=== PATIENT | male | born 1980 | race African-American/Black ===

== ENCOUNTER 2016-12-16 19:55 | Emergency (ER) | payer MEDICARE, MEDICAID ==
[~2016-12-16] VITALS: Ht 185.4 cm; Wt 93.4 kg
[2016-12-16 21:01] LABS: Basophils # (auto) 0 uL; Basophils % (auto) 0.1 % (0.0-2.0); Eosinophils # (auto) 0.2 uL; Eosinophils % (auto) 2.2 % (0.0-7.0); Hematocrit 44.8 % (41.0-53.0); Hemoglobin 15.2 g/dL (13.5-17.5); Lymphocytes # (auto) 1.2 uL; Lymphocytes % (auto) 11.1 % (10.0-50.0); Mean Corpuscular Hemoglobin 31.3 pg (28.0-32.0); Mean Corpuscular Volume 92.2 fL (80.0-100.0); Mean Platelet Volume 7.2 fL (7.4-10.4); Monocytes # (auto) 0.6 uL; Monocytes % (auto) 5.7 % (0.0-12.0); Neutrophils # (auto) 8.4 uL; Neutrophils % (auto) 80.9 % (37.0-80.0); Platelet Count (auto) 306 10^3/uL (140-450); Red Cell Distribution Width 13.8 % (11.6-16.0); White Blood Cell 10.4 10^3/uL (4.4-10.8)
[2016-12-16 21:26] LABS: Albumin 3.9 g/dL (3.4-5.0); BUN/Creatinine Ratio 11.4; Bilirubin, Total 0.7 mg/dL (0.2-1.0); Calcium 8.6 mg/dL (8.5-10.1); Potassium 3.5 mmol/L (3.5-5.1); Total Protein 7.9 g/dL (6.4-8.2)
[2016-12-16 22:41] LABS: Urine Bilirubin Negative (Negative); Urine Blood Negative /uL (Negative); Urine Color Yellow (Yellow); Urine Glucose Normal (Normal); Urine Ketone Negative (Negative); Urine Nitrite Negative (Negative); Urine RBC <1 /hpf (0 - 3); Urine Urobilinogen Normal (Negative)
[2016-12-17] MEDS ORDERED: predniSONE 20 MG TAB PO ONE (03:30)
[2016-12-17] MEDS ORDERED: IPRATROPIUM BROM 0.5 MG/2.5ML INH SOL NEB ONE (03:30)
[2016-12-17] MEDS ORDERED: ALBUTEROL SULF 2.5 MG/0.5ML(0.5%) NEB SOLN NEB ONE (03:30)
[2016-12-17 05:08] VITALS: BP 149/82
== END 2016-12-17 06:30 | disposition home or self-care (01) ==
LOC: ER 19:56
DX: J45.909 Unspecified asthma, uncomplicated (principal); I10 Essential (primary) hypertension
CPT/HCPCS: 36415; 71010; 80053; 81001; 85025; 94644; 99285; J7512; 94640

== ENCOUNTER 2017-07-31 12:41 | Emergency (ER) | payer MEDICARE, MEDICAID ==
[~2017-07-31] VITALS: Ht 185.4 cm; Wt 91.6 kg
[2017-07-31 12:53] VITALS: BP 150/97
== END 2017-07-31 13:00 | disposition home or self-care (01) ==
LOC: ER 12:41
DX: F31.9 Bipolar disorder, unspecified (principal); I10 Essential (primary) hypertension; Z76.0 Encounter for issue of repeat prescription

== ENCOUNTER 2017-09-12 09:26 | Emergency (ER) | payer MEDICARE, MEDICAID ==
[~2017-09-12] VITALS: Ht 185.4 cm; Wt 92.5 kg
[2017-09-12 09:44] VITALS: BP 164/97
== END 2017-09-12 09:52 | disposition home or self-care (01) ==
LOC: ER 09:26
DX: F31.9 Bipolar disorder, unspecified (principal); F20.0 Paranoid schizophrenia; I10 Essential (primary) hypertension; Z76.0 Encounter for issue of repeat prescription